=== PATIENT | male | born 1955 | race Caucasian/White ===

== ENCOUNTER 2020-06-04 14:17 | Emergency (ER) | payer BC, SELFPAY ==
[2020-06-04] VITALS (13 sets, daily range): BP systolic 130–180; BP diastolic 76–93; PULSE 60–102; RESP 8–23; TEMP 36.4; O2SAT 97–100
--- NOTE | ~2020-06-04 | XR_ITS ---
EXAMINATION: XR chest 2V EXAM DATE: 06/04/2020 15:02 INDICATION: Shortness of breath. TECHNIQUE: Frontal and lateral projections of the chest obtained and reviewed. Comparison is made to prior examination from 11/11/2012. FINDINGS: The lungs are clear. There are no pleural effusions. The cardiomediastinal silhouette is within normal limits. There is no pneumothorax suspected. The bones and soft tissues are unremarkab le. IMPRESSION: Normal chest x-ray exam. Reviewed, dictated and finalized at location B. IMPRESSION: Normal chest x-ray exam.
--- NOTE | 2020-06-04 14:24 | ECG_ITS ---
Measurements Intervals [place] Rate: 96 P: 27 ME: 139 QRS: -22 QRSD: 102 T: 73 QT: 353 QTc: 446 Interpretive Statements SINUS RHYTHM BORDERLINE ST-T WAVE ABNORMALITY- HIGH LATERAL LEADS BORDERLINE ECG Electronically Signed On 06-04-2020 14:38:17 CDT by Sebastián Payne D.O.
[2020-06-04 14:46] LABS: Basophils Absolute Auto 0.1 K/mm3 (0.0-0.1); Basophils Percent Auto 1.1 % (0.2-1.2); Eosinophils Absolute Auto 0.3 K/mm3 (0-0.3); Hematocrit 46.3 % (42.0-52.0); Hemoglobin 15.8 g/dL (14.0-18.0); Immature Granulocyte Absolute 0.03 K/mm3 (0.00-0.031); Immature Granulocyte Percent A 0.5 % (0-0.5); Lymphocytes Absolute Auto 2.02 K/mm3 (0.9-3.2); Lymphocytes Percent Auto 32.8 % (18.3-44.2); Mean Corpuscular HGB Conc 34.1 g/dl (32-36); Mean Corpuscular Hemoglobin 30.3 pg (26-34); Mean Corpuscular Volume 88.7 fl (80-100); Mean Platelet Volume 9.8 fl (7.4-10.4); Monocytes Absolute Auto 0.4 K/mm3 (0.1-0.6); Monocytes Percent Auto 5.7 % (2.6-8.5); Neutrophils Absolute Auto 3.4 K/mm3 (1.3-6.7); Neutrophils Percent Auto 54.9 % (45.5-73.1); Platelet Count Result 311 k/mm3 (150-375); Red Blood Count 5.22 M/mm3 (4.6-6.20); Red Cell Distribution Width 12.5 % (11.5-14.5); White Blood Count 6.2 K/mm3 (4.5-10.0)
[2020-06-04 14:55] LABS: Partial Thromboplastin Time 26.1 SECONDS (22.3-36.8); Prothrombin Time 12.7 Seconds (11.1-14.7)
[2020-06-04 14:57] LABS: Anion Gap 16 mmol/L (8-16); Blood Urea Nitrogen 18 mg/dL (9-20); Calcium 9.8 mg/dL (8.4-10.2); Carbon Dioxide 24 mmol/L (22-30); Chloride 101 mmol/L (98-107); Estimated CRCL calculation 63 ml/min; Estimated Glomerular Filt Rate > 60; Glucose 113 mg/dL (75-110); Potassium 3.7 mmol/L (3.4-5.0); Sodium 141 mmol/L (137-145)
[2020-06-04 15:09] LABS: Troponin I < 0.012 ng/mL (0.000-0.034)
--- NOTE | 2020-06-04 16:38 | ED.CHESTPAIN ---
HPI - Chest Pain General Chief Complaint: Chest Pain Stated Complaint: back pain, sob Time Seen by Provider: 06/04/20 14:24 Source: patient Mode of arrival: ambulatory Limitations: no limitations History of Present Illness HPI narrative: Patient is a 64-year-old male with a history of hypertension and hyperlipidemia who presents for evaluation of chest pain. Patient reports constant chest pain over the past two days that is worse with movement. Whenever he moves his neck to the right or left he feels a pulling sensation in his upper left chest that goes into his left neck. He states this only occurs with movement. Patient states that pain began after he played 2 long rounds of golf on Wednesday and Wednesday. He is worried he may have pulled a muscle from golfing. However, patient states he started to feel like he may be at risk for COVID and began to feel short of breath. He denies any fever or cough. No recent sick exposures. No myalgias or diarrhea. No loss of sense of taste or smell. Patient states that he does not have a history of HI, but history of HI in his father. Related Data Home Medications Medication Instructions Recorded Confirmed losartan 50 mg PO DAILY 06/04/20 simvastatin 10 mg PO DAILY 06/04/20 Allergies Allergy/AdvReac Type Severity Reaction Status Date / Time No Known Allergies Allergy Unknown Verified 09/17/05 06:20 Review of Systems Review of Systems: Narrative: CONSTITUTIONAL: Denies fever, chills, or sweats. EYES: Denies visual changes, redness, or discharge. ENT: Denies rhinorrhea, congestion, sore throat, or otalgia. CARDIOVASCULAR: Reports upper left-sided chest pain, denies palpitations or leg edema RESPIRATORY: Denies cough or dyspnea. GASTROINTESTINAL: Denies abdominal pain, nausea, vomiting, or diarrhea. GENITOURINARY: Denies dysuria or hematuria. SKIN: Denies rash or itching. MUSCULOSKELETAL: Denies back pain, joint pain, or myalgia. NEUROLOGIC: Denies headache, numbness, or weakness. [facility] Past Medical History Medical History (Updated 06/04/20 @ 18:08 by Julita Acosta MD) Hyperlipidemia Hypertension Social History Social History (Updated 06/04/20 @ 16:40 by Julita Acosta MD) Smoking status: Never smoker Alcohol intake: current Alcohol use details: Social Substance use: never Gender identity (if verbalized by the patient): Male Exam Narrative: Exam Narrative: GENERAL: Awake, alert, conversant HEAD: Normocephalic, atraumatic. EYES: PERRLA and EOMI. ENT: Nares clear, no rhinorrhea or epistaxis. Mucous membranes moist. NECK: Supple. Positive left cervical paraspinal neck pain. Patient can reproduce the pain in his chest when he turns his head to the left or right. No meningitic signs. CHEST: No respiratory distress, breathing even and non labored, mild reproducible chest wall pain over left upper chest HEART: Regular rate, sinus rhythm ABDOMEN:Non distended, non tender EXTREMITIES: Normal range of motion. No edema. SKIN: Warm, dry, no rash. NEURO:No focal deficits. Alert and oriented x3 Course Vital Signs Vital signs: Vital Signs Temperature 36.4 C 06/04/20 14:20 Pulse Rate 102 H 06/04/20 14:20 Respiratory Rate 17 06/04/20 14:20 Blood Pressure 180/78 H 06/04/20 14:20 Pulse Oximetry 100 06/04/20 14:20 Temperature 36.4 C 06/04/20 14:20 Pulse Rate 65 06/04/20 18:20 Respiratory Rate 16 06/04/20 18:20 Blood Pressure 145/85 H 06/04/20 18:20 Pulse Oximetry 97 06/04/20 18:20 MDM - Chest Pain MDM Narrative Medical decision making narrative: Patient presented for the evaluation of chest pain and neck pain that is worse with movement. Pain has been present over 48 hours. Given exam, I feel symptoms are more consistent with musculoskeletal pain especially given patient's recent activity and the nature of the pain. Patient's EKG and labs are without significant high risk changes. Cardiac risk factors reviewed. Pat
[2020-06-04 17:20] LABS: D Dimer 0.33 ug/mL (<0.48)
[2020-06-04 18:01] LABS: Troponin I < 0.012 ng/mL (0.000-0.034)
[2020-06-04] MEDS: ASPIRIN 81 MG CHEWABLE TABLET 324 MG PO (18:19)
== END 2020-06-04 18:20 | disposition home or self-care (01) ==
PROVIDERS: Emergency Medicine Emergency Medical Services; Emergency Provider Emergency Medicine; PCP Internal Medicine
DX: R07.89 Other chest pain (principal); I10 Essential (primary) hypertension; E78.5 Hyperlipidemia, unspecified
CPT/HCPCS: 36415; 71046; 80048; 84484; 85025; 85380; 85610; 85730; 93005; 99284; A9270

== ENCOUNTER 2022-10-13 02:50 | Day surgery (SDC) | payer MEDICARE, SELFPAY ==
[2022-10-05 13:11] VITALS: BMI 24.5
[2022-10-13 09:57] VITALS: BP 154/67; PULSE 48; RESP 18; TEMP 36.4; O2SAT 100
--- NOTE | 2022-10-13 10:08 | P.PNAN_ITS ---
Anes - Initial Pre Proc Eval Procedure: Operation Date: 10/13/22 11:00 Proposed Procedures p Screening Colonoscopy - Dell Whittington MD Date/Time: 10/13/22 10:08 Surgeon: Dell Whittington MD Pre Op Diagnosis: Neoplasm Screening Patient Data Age: 66 Gender: M Height: 1.78 m Weight: 78.8 kg Last Vital Signs Temp 36.4 C 10/13/22 09:57 Pulse 48 L 10/13/22 09:57 Resp 18 10/13/22 09:57 BP 154/67 H 10/13/22 09:57 Pulse Ox 100 10/13/22 09:57 O2 Del Method Room Air 10/13/22 09:57 Allergies Allergy/AdvReac Type Severity Reaction Status Date / Time No Known Allergies Allergy Unknown Verified 10/13/22 09:54 Home Medications Medication Instructions Recorded Confirmed Type No Home Medications 10/13/22 10/13/22 History Patient hx anesthesia problems: none Family hx anesthesia problems: none Results Review: All pre-operative results and documents have been reviewed as part of the pre- operative evaluation. PMFSH Past Medical History Medical History Hyperlipidemia Hypertension Social History Social History Smoking status: Never smoker Alcohol intake: current Drinks per week: 14 Alcohol use details: Beer Substance use: never Substance use type: does not use Living arrangements: alone Gender identity (if verbalized by the patient): Male Spiritual care concerns: No Anes - Eval Final PreProcedure Day of Procedure 10/13/22 10:08 Patient weight: normal Heart: bradycardia Lungs: clear to auscultation Airway: Mallampati scale class II Neurological: alert and oriented Last oral intake: >/= 8 hours ASA classification: II Emergent: no Anesthetic plan: proceed Anesthesia type and monitoring: general GIVS and standard monitoring Results Review: All pre-operative results and documents have been reviewed as part of the pre- operative evaluation. Informed Consent: The patient's anesthetic plan and its attendant risks and benefits were discussed with the patient/family/POA. Questions were solicited and answers p rovided to the satisfaction of the patient/family/POA.
[2022-10-13] MEDS: LACTATED RINGERS 1,000 ML 150 ML IV CONT (10:11)
--- NOTE | 2022-10-13 10:48 | PM.HPGS ---
History of Present Illness History of Present Illness Consent: Risks, benefits, and alternatives have been discussed and questions answered. Patient agrees to proceed with procedure. Chief complaint: Neoplasm Screening Narrative: Shabbir Sheets is a 66 year old male Presents for screening colonoscopy. Patient gives a history of having an adenoma removed from the colon 12 years ago. This was in [facility]. He presents today for follow-up screening exam. His current weight appetite bowel movements are normal. Patient denies abdominal pain. His he reports brief history of left lower quadrant pain in July. Review of Systems Review of Systems: Review of systems noncontributory. [facility] Past Medical History Medical History Hyperlipidemia Hypertension Social History Social History Smoking status: Never smoker Alcohol intake: current Drinks per week: 14 Alcohol use details: Beer Substance use: never Substance use type: does not use Living arrangements: alone Gender identity (if verbalized by the patient): Male Spiritual care concerns: No Meds Home Medications and Allergies Home Medications Medication Instructions Recorded Confirmed Type No Home Medications 10/13/22 10/13/22 History Allergies Allergy/AdvReac Type Severity Reaction Status Date / Time No Known Allergies Allergy Unknown Verified 10/13/22 09:54 Vital Signs Vital Signs - 24 hr 10/13/22 09:57 Temperature 97.6 F Pulse Rate 48 L Respiratory Rate 18 Blood Pressure 154/67 H Pulse Oximetry 100 Oxygen Delivery Room Air Exam Narrative: Physical exam reveals patient be alert. Vital signs stable. HEENT exam is unremarkable. Patient is anicteric. Lungs are clear to auscultation and percussion. Heart is without murmur or extra sounds. Abdomen bowel sounds present soft nontender with no organomegaly. Digital external rectal exam is normal. Assessment and Plan Assessment and plan (1) Encounter for screening colonoscopy: Code(s): Z12.11 - Encounter for screening for malignant neoplasm of colon Status: Acute Assessment and Plan: Patient presents for screening colonoscopy. Further recommendations may be given after endoscopy.
[2022-10-13 11:13] VITALS: BP 104/62; PULSE 46; RESP 15; O2SAT 91
[2022-10-13 11:23] VITALS: BP 112/64; PULSE 43; RESP 13; O2SAT 99
[2022-10-13 11:33] VITALS: BP 117/71; PULSE 41; RESP 14; O2SAT 100
== END 2022-10-13 11:42 | disposition home or self-care (01) ==
PROVIDERS: PCP Family Medicine; Visit Provider Internal Medicine Gastroenterology
PROC: 0DJD8ZZ Inspection of Lower Intestinal Tract, Via Natural or Artificial Opening Endoscopic (ICD-10-PCS; CPT 45378; principal; 2022-10-13 11:00)
DX: Z12.11 Encounter for screening for malignant neoplasm of colon (principal); K64.8 Other hemorrhoids; K57.30 Diverticulosis of large intestine without perforation or abscess without bleeding; I10 Essential (primary) hypertension; E78.5 Hyperlipidemia, unspecified; Z86.010 Personal history of colon polyps
CPT/HCPCS: G0105; J2704; J7120